=== PATIENT | male | born 1980 | race Caucasian/White ===

== ENCOUNTER 2016-12-25 00:38 | Emergency (ER) | payer OTHER ==
[2016-12-25 00:45] VITALS: RESP 16; TEMP 97.9
--- NOTE | 2016-12-25 01:21 | EDPHY ---
H & P Stated Complaint: concrete block fall on r big toe Time Seen by Provider: 12/25/16 01:13 HPI/ROS: HPI The patient presents with right great toe pain which has been present for the last several hours after dropping 190 lb concrete slab on his great toe. He had pain immediately with some swelling. He used ice but while lying in bed had persistent pain, thus came into the emergency room. He noted that he had a subungual hematoma and did puncture his nail in an attempt to drain it which was successful. REVIEW OF SYSTEMS Constitutional: No fever, no chills. Skin: No rashes. Neurological: No headache. PMHx: Healthy Soc Hx: Nonsmoker FHx: PHYSICAL General Appearance: Alert, no distress Eyes: Pupils equal and round no pallor or injection ENT, Mouth: Mucous membranes moist Respiratory: Breathing comfortably Neurological: A&O, moves all extremities Skin: Warm and dry, no rashes Extremities: Right great toe is ecchymotic and tender to palpation, there is a 50% subungual hematoma which has been drained with puncture to the nail bed Psychiatric: Patient is oriented X 3, there is no agitation Source: Patient Exam Limitations: No limitations - Personal History Current Tetanus/Diphtheria Vaccine: Yes Current Tetanus Diphtheria and Acellular Pertussis (TDAP): Yes - Medical/Surgical History Hx Asthma: No Hx Chronic Respiratory Disease: No Hx Diabetes: No Hx Cardiac Disease: No Hx Renal Disease: No Hx Cirrhosis: No Hx Alcoholism: No Hx HIV/AIDS: No Hx Splenectomy or Spleen Trauma: No - Social History Smoking Status: Never smoked Constitutional: Initial Vital Signs Temperature (C) 36.6 C 12/25/16 00:41 Heart Rate 60 12/25/16 00:41 Respiratory Rate 16 12/25/16 00:41 Blood Pressure 134/78 H 12/25/16 00:41 O2 Sat (%) 95 12/25/16 00:41 O2 Delivery Mode Room Air Allergies/Adverse Reactions: No Known Allergies Allergy (Unverified 12/25/16 00:41) Home Medications: Medication Instructions Recorded NK [No Known Home Meds] 12/25/16 Medical Decision Making - Diagnostics Imaging Results: Right great toe three views shows comminuted fracture of the distal phalanx involving the interphalangeal joint, nondisplaced, interpreted by me, radiology interpretation is pending. Differential Diagnosis: This is a 36-year-old male who presents after dropping a concrete slab on his toe. He has had pain and swelling ever since. He has a subungual hematoma that he is trying to himself. X-rays performed show great toe fracture. He was placed in a postop shoe and given instructions for rest, ice, compression, elevation, rachel tape as needed. I will refer him to Podiatry. Differential diagnosis includes great toe fracture, great toe contusion, great toe subungual hematoma. Departure - Departure Disposition: Home, Routine, Self-Care Clinical Impression: Subungual hematoma Fracture of great toe of right foot Qualifiers: Encounter type: initial encounter Fracture type: closed Phalanx: proximal Fracture alignment: nondisplaced Qualified Code(s): S92.414A - Nondisplaced fracture of proximal phalanx of right great toe, initial encounter for closed fracture Condition: Good Instructions: Toe Fracture (ED) Additional Instructions: Please wear the postop shoe to help with pain. You should ice your toe and elevated as much as possible. You can take ibuprofen 400 mg and acetaminophen 1 g together every 6 hours as needed for pain. Please call the advertising operations coordinator for follow-up appointment. Referrals: Joaquin Horta MD [Primary Care Provider] - As per Instructions Rula Yen DPM [Doctor of Podiatric Medicine] - As per Instructions
[2016-12-25] MEDS ORDERED: ACETAMINOPHEN 500 MG TAB ONE (01:43)
[2016-12-25 01:48] VITALS: BP 136/82; PULSE 56; O2SAT 99
== END 2016-12-25 01:46 | disposition home or self-care (01) ==
DX: S92.414A Nondisplaced fracture of proximal phalanx of right great toe, initial encounter for closed fracture (principal); S90.211A Contusion of right great toe with damage to nail, initial encounter; W20.8XXA Other cause of strike by thrown, projected or falling object, initial encounter
CPT/HCPCS: L3260

== ENCOUNTER → 2017-01-24 | Outpatient (CLI) | payer OTHER | LOC: BMCIMAGING 08:40 | PROVIDERS: ATTEND Podiatrist Foot & Ankle Surgery | DX: S92.424D Nondisplaced fracture of distal phalanx of right great toe, subsequent encounter for fracture with routine healing (principal) ==